=== PATIENT | male | born 1990 | race Caucasian/White ===

== ENCOUNTER 2017-10-09 13:14 | Emergency (ER) | payer BC, OTHER ==
--- NOTE | 2017-10-09 13:33 | EDM.PDOC ---
ED HPI GENERAL MEDICAL PROBLEM - General Chief Complaint: Lower Extremity Injury/Pain Stated Complaint: LEFT LOWER BACK,HIP AND KNEE PAIN Time Seen by Provider: 10/09/17 13:17 Source of Information: Reports: Patient History Limitations: Reports: No Limitations - History of Present Illness INITIAL COMMENTS - FREE TEXT/NARRATIVE: HISTORY AND PHYSICAL: History of present illness: Patient is a 27-year-old male who presents to the emergency room after falling down 7 steps. He states he landed on his left side and did hit his head on the ground. He does not believe he lost any consciousness but does have left sided lower extremity pain. Denies any headache, change in vision, fever, chills or chest pain, shortness of breath, abdominal pain, nausea, vomiting or diarrhea. Patient is ambulatory although it does cause pain. Denies any urinary or fecal incontinence. Denies any numbness or tingling to his lower extremities. Review of systems: As per history of present illness and below otherwise all systems reviewed and negative. Past medical history: As per history of present illness and as reviewed below otherwise noncontributory. Surgical history: As per history of present illness and as reviewed below otherwise noncontributory. Social history: No reported history of drug or alcohol abuse. Family history: As per history of present illness and as reviewed below otherwise noncontributory. Physical exam: General: Well-developed and well-nourished 27 year old male. Alert and oriented. Nontoxic appearing and in no acute distress. HEENT: Nontender to palpation, normocephalic, pupils reactive, negative for conjunctival pallor or scleral icterus, mucous membranes moist, throat clear, neck supple, nontender, trachea midline. Lungs: Clear to auscultation, breath sounds equal bilaterally, chest nontender. Heart: S1S2, regular, negative for clicks, rubs, or JVD. Abdomen: Soft, nondistended, nontender. Negative for masses or hepatosplenomegaly. Negative for costovertebral tenderness. Pelvis: Stable nontender. Genitourinary: Deferred. Rectal: Deferred. Extremities: Moves all per self. Ambulatory, c/o pain to left knee and hip with weight bearing. Tenderness to palpation to left lateral knee and delaney prominence of left hip. No internal/external rotation noted. +CMS. strong pedal pulses bilaterally. Denies any numbness or tingling to his lower extremities. He is negative for cords or calf pain. Neurovascular unremarkable. C-spine/Back: Mild tenderness to cervical spine, no crepitus, step-offs or obvious deformities. No pinpoint vertebral tenderness to the thoracic, lumbar or sacral spine. Musculoskeletal tenderness noted to the lumbar spine into the sacrum. Neuro: Awake, alert, oriented. Cranial nerves II through XII unremarkable. Cerebellum unremarkable. Motor and sensory unremarkable throughout. Exam nonfocal. C-collar applied while in triage. Initially patient was agreeable to head CT and CT of the cervical spine. Upon going down to the radiology department he declined CT imaging. He is agreeable to doing a one view cervical spine x-ray along with the other x-rays that have been ordered. Pt is aware of risks of not having the CT performed. Xray results of the hip/pelvis, lumbar spine, and cervical spine are negative with no dislocations or fractures noted. The x-ray of the left knee shows no acute fracture dislocation or soft tissue/joint effusion. Does note a minimal lateral subluxation of the patella. Diagnostics: Head CT, C-spine CT, x-ray lumbar spine, x-ray hip/pelvis, x-ray left knee Therapeutics: Toradol Crutches, knee immobilizer Impression: 1. Fall 2. Contusion 3. Knee injury Plan: 1. Rest, ice, elevate the affected extremity. 2. Please use the knee immobilizer and crutches for the next 2-3 days for comfort. If he continued to have pain please follow-up with the orthopedic provider. The phone number and contact information has been given to you. 3. Tylenol may be used for pain management. Do not take any additional NSAIDs, such as ibuprofen or Aleve, while using the diclofenac as this may cause stomach upset. 4. Follow-up with orthopedic provider as we discussed. Return to the ED as needed and as discussed. Definitive disposition and diagnosis as appropriate pending reevaluation and review of above. Onset: Today Duration: Hour(s): Location: Reports: Pelvis, Lower Extremity, Left Low Back/Left Hip/Left Knee Pain Score (Numeric/FACES): 10 - Related Data Allergies Allergy/AdvReac Type Severity Reaction Status Date / Time No Known Allergies Allergy Verified 10/09/17 13:36 Home Meds: Home Meds Diclofenac Potassium [Cataflam] 50 mg PO TID PRN #20 tab 10/09/17 [Rx] Finasteride [Propecia] 0 mg PO DAILY 10/09/17 [History] Review of Systems - Review of Systems Review Of Systems: ROS reveals no pertinent complaints other than HPI. ED EXAM, GENERAL - Physical Exam Exam: See Below (See dictation) Course - Vital Signs Last Recorded V/S: Last Vital Signs Temp 97.7 F 10/09/17 13:36 Pulse 111 H 10/09/17 13:36 Resp 18 10/09/17 13:36 BP 128/74 10/09/17 13:36 Pulse Ox 96 10/09/17 13:36 - Orders/Labs/Meds Orders: Active Orders 24 hr Category Date Time Status DME for Discharge [COMM] Stat Oth 10/09/17 15:14 Ordered Meds: Medications Discontinued Medications Generic Name Dose Route Start Last Admin Trade Name Freq PRN Reason Stop Dose Admin Ketorolac Tromethamine 60 mg 10/09/17 13:44 10/09/17 13:54 Toradol IM 10/09/17 13:45 60 mg ONETIME ONE Administration Departure - Departure Time of Disposition: 15:13 Disposition: Home, Self-Care 01 Clinical Impression: Fall Qualifiers: Encounter type: initial encounter Qualified Code(s): W19.XXXA - Unspecified fall, initial encounter Knee injury Qualifiers: Encounter type: initial encounter Laterality: left Qualified Code(s): S89.92XA - Unspecified injury of left lower leg, initial encounter Contusion Qualifiers: Encounter type: initial encounter Contusion area: hip Laterality: left Qualified Code(s): S70.02XA - Contusion of left hip, initial encounter - Discharge Information Prescriptions: Diclofenac Potassium [Cataflam] 50 mg PO TID PRN #20 tab PRN Reason: Pain Referrals: PCP,None [Primary Care Provider] - Forms: ED Department Discharge Additional Instructions: My general discharge The following information is given to patients seen in the emergency department who are being discharged to home. This information is to outline your options for follow-up care. We provide all patients seen in our emergency department with a follow-up referral. The need for follow-up, as well as the timing and circumstances, are variable depending upon the specifics of your emergency department visit. If you don't have a primary care physician on staff, we will provide you with a referral. We always advise you to contact your personal physician following an emergency department visit to inform them of the circumstance of the visit and for follow-up with them and/or the need for any referrals to a consulting specialist. The emergency department will also refer you to a specialist when appropriate. This referral assures that you have the opportunity for follow-up care with a specialist. All of these measure are taken in an effort to provide you with optimal care, which includes your follow-up. Under all circumstances we always encourage you to contact your private physician who remains a resource for coordinating your care. When calling for follow-up care, please make the office aware that this follow-up is from your recent emergency room visit. If for any reason you are refused follow-up, please contact the [facility] Emergency Department at and asked to speak to the emergency department charge nurse. [facility] [address] [place] [id number] [facility] - Orth[facility] Professional [facility] [address] [place] [address], [address] [place] [address] 1. Rest, ice, elevate the affected extremity. 2. Please use the knee immobilizer and crutches for the next 2-3 days for comfort. If you continued to have pain please follow-up with the orthopedic provider. The phone number and contact information has been given to you. 3. Tylenol may be used for pain management. Do not take any additional NSAIDs, such as ibuprofen or Aleve, while using the diclofenac as this may cause stomach upset. Please take with food. 4. Follow-up with orthopedic provider as we discussed. Return to the ED as needed and as discussed. - My Orders Last 24 Hours: My Active Orders 10/09/17 15:14 DME for Discharge [COMM] Stat - Assessment/Plan Last 24 Hours: My Active Orders 10/09/17 15:14 DME for Discharge [COMM] Stat
[2017-10-09] MEDS ORDERED: Ketorolac 60 MG/2 ML SDV IM ONE (13:44)
--- NOTE | 2017-10-09 15:02 | CR ---
EXAMINATION: Left knee HISTORY: Pain COMPARISON: None TECHNIQUE: 3 views FINDINGS/IMPRESSION: There is no acute osseous abnormality, dislocation, or fracture. Bone mineraliza tion and joint spaces appear normal. No soft tissue swelling or joint effusion. Minimal lateral sublu xation of the patella.
--- NOTE | 2017-10-09 15:02 | CR ---
EXAMINATION: Left hip HISTORY: Pain COMPARISON: None TECHNIQUE: 3 views FINDINGS/IMPRESSION: There is no acute osseous abnormality, dislocation, or fracture. Bone mineraliza tion and joint spaces appear normal.
--- NOTE | 2017-10-09 15:06 | CR ---
EXAMINATION: Lumbar spine HISTORY: Pain COMPARISON: None TECHNIQUE: AP and lateral views FINDINGS: The lumbar spinal alignment is normal. The vertebral body heights and disc spaces appear we ll-maintained. There is no fracture or acute osseous abdomen body. Bone mineralization is normal. The SI joints are symmetric. IMPRESSION: Grossly unremarkable lumbar spine.
--- NOTE | 2017-10-09 15:10 | CR ---
EXAMINATION: Cervical spine HISTORY: Pain COMPARISON: None TECHNIQUE: Single lateral view FINDINGS: Cervical spinal alignment is normal. Vertebral body heights and disc spaces appear maintain ed. C7 is not well characterized. Bone mineralization is otherwise normal. Prevertebral soft tissues are within normal limits. IMPRESSION: Grossly unremarkable cervical spine.
== END 2017-10-09 15:26 | disposition home or self-care (01) ==
LOC: MW.ED 13:14
DX: S70.02XA Contusion of left hip, initial encounter (principal); S89.92XA Unspecified injury of left lower leg, initial encounter; Z79.899 Other long term (current) drug therapy; W10.9XXA Fall (on) (from) unspecified stairs and steps, initial encounter
CPT/HCPCS: 72020; 72100; 73501; 73562; 96372; 99283; J1885; 99284

== ENCOUNTER 2017-12-18 14:02 | Emergency (ER) | payer OTHER ==
[2017-12-18] MEDS ORDERED: Ketorolac 60 MG/2 ML SDV IM ONE (14:25)
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
[2017-12-18] MEDS ORDERED: Dexamethasone 4 MG Tab PO SCH (14:45)
--- NOTE | 2017-12-18 15:11 | CR ---
EXAMINATION: Lumbar spine HISTORY: Pain COMPARISON: 10/28/2017 TECHNIQUE: AP and lateral views of the lumbar spine FINDINGS: The lumbar spinal alignment is normal. The vertebral body heights and disc spaces appear we ll-maintained. There is no fracture or acute osseous abnormality. Bone mineralization is normal. IMPRESSION: Grossly unremarkable lumbar spine.
== END 2017-12-18 15:55 | disposition home or self-care (01) ==
LOC: MW.ED 14:02
DX: M54.42 Lumbago with sciatica, left side (principal); Z79.899 Other long term (current) drug therapy
CPT/HCPCS: 72100; 96372; 99283; J1885; J8540